=== PATIENT | female | born 1975 | race Caucasian/White ===

== ENCOUNTER 2017-01-20 18:07 | Inpatient (IN) | payer MEDICAID, OTHER ==
[~2017-01-20] VITALS: Ht 154.9 cm; Wt 80.3 kg
--- NOTE | 2017-01-20 18:21 | NUR ---
Patient to bed 07.
--- NOTE | 2017-01-20 18:22 | NUR ---
41/F BIB FAMILY FOR ACUTE ABD PAIN STARTED YESTERDAY FOLLOWED BY N/V/D. STS FEELS DIZZY AND WEAK. FEBRILE IN TRIAGE. HX HTN. RX LISINOPRIL-HCTZ. SKIN IS PINK/WARM/DRY; AAOX4 WITH EVEN AND STEADY GAIT; LUNGS CLEAR BL, PATIENT STATES PAIN OF 5/10 AT THIS TIME; PATIENT POSITIONED FOR COMFORT; HOB ELEVATED; BEDRAILS UP X2; BED DOWN. ER MD MADE AWARE OF PT STATUS.
[2017-01-20 18:28] VITALS: BP 116/74
[2017-01-20] MEDS ORDERED: LISINOPRIL-HCTZ 20-25 MG TAB (18:31)
[2017-01-20] MEDS ORDERED: ONDANSETRON 4 MG/2 ML VIAL IVP ONE ×2 (18:45→20:20)
[2017-01-20] MEDS ORDERED: ACETAMINOPHEN EXTRA STRENGTH 500 MG TAB PO ONE (18:45)
[2017-01-20] MEDS ORDERED: NACL 0.9% 1,000 ML IV ONE ×3 (18:45→21:15)
--- NOTE | 2017-01-20 19:08 | NUR ---
Pt report given to WILMA ROCKWELL . Transfer of care at this time.
[2017-01-20 19:10] LABS: BASOPHILS # (AUTO) 0.1 K/uL (0.00-0.22); BASOPHILS % (AUTO) 2.1 % (0.0-2.0); EOSINOPHILS % (AUTO) 0.1 % (0.0-4.0); HEMATOCRIT 40.4 % (36-48); HEMOGLOBIN 13.9 g/dL (12.0-16.0); LYMPHOCYTES # (AUTO) 0.3 K/uL (2.5-16.5); LYMPHOCYTES % (AUTO) 9.2 % (20.5-51.1); MEAN CORPUSCULAR HEMOGLOBIN 31 pg (27-31); MEAN CORPUSCULAR HGB CONC 35 g/dL (33-37); MEAN CORPUSCULAR VOLUME 91 fL (80-94); MONOCYTES # (AUTO) 0.1 K/uL (0.8-1.0); MONOCYTES % (AUTO) 1.9 % (1.7-9.3); NEUTROPHILS % (AUTO) 86.7 % (42.2-75.2); PLATELET COUNT (AUTO) 216 K/uL (140-450); RED BLOOD CELL COUNT(AUTO) 4.45 MIL/uL (4.20-5.40); RED CELL DISTRIBUTION WIDTH 11.5 % (11.6-13.7); WHITE BLOOD COUNT (AUTO) 3.5 K/uL (4.8-10.8)
[2017-01-20 19:11] LABS: APPEARANCE,URINE CLEAR (CLEAR); BILIRUBIN,URINE NEGATIVE (NEGATIVE); BLOOD, URINE 2+ (NEGATIVE); COLOR,URINE YELLOW (YELLOW); LEUKOCYTE ESTERASE ,URINE NEGATIVE (NEGATIVE); NITRITE, URINE NEGATIVE (NEGATIVE); UGLUCOSE NEGATIVE (NEGATIVE)
--- NOTE | 2017-01-20 19:15 | NUR ---
Pt found resting comfortably, IV fluids infusing, IV site intact, no swelling or redness. AOX4, clear speech. Comfort needs addressed. Warm blanket provided.
[2017-01-20 19:18] LABS: RBC,URINE 0-5 (RARE) /HPF (0-5); WBC,URINE 0-5 (RARE) /HPF (0-5)
[2017-01-20 19:20] LABS: CREATININE 1.1 mg/dL (0.6-1.3)
[2017-01-20 19:25] LABS: ALBUMIN 3.4 g/dL (3.4-5.0); TOTAL BILIRUBIN 0.9 mg/dL (0.0-1.0)
[2017-01-20] MEDS ORDERED: DICYCLOMINE 20 MG/2 ML VIAL IM ONE (19:25)
--- NOTE | 2017-01-20 19:32 | NUR ---
Patient taken to CT scan via wheelchair by tech.
[2017-01-20] MEDS ORDERED: POTASSIUM CHLORIDE 10 MEQ TABER PO ONE ×2 (19:45→22:50)
--- NOTE | 2017-01-20 19:45 | NUR ---
Pt returned from CT and placed in bed 7.
[2017-01-20] MEDS ORDERED: MORPHINE SULFATE 4 MG/ML SYR IVP ONE (20:20)
--- NOTE | 2017-01-20 20:41 | NUR ---
Patient appears to be resting comfortably in bed. VSS. Family at bedside. Comfort needs addressed.
[2017-01-20] MEDS ORDERED: PIPERACILLIN/TAZOBACTAM 3.375 GM in DEXTROSE 5% 50 ML IV ONE (21:15)
--- NOTE | 2017-01-20 21:15 | NUR ---
Dr. Salcedo at bedside re-evaluating patient at bedside. VSS.
--- NOTE | 2017-01-20 21:17 | NUR ---
Ambulated to restroom with steady gait.
--- NOTE | 2017-01-20 21:23 | NUR ---
Lab at bedside for blood draw.
[2017-01-20] MEDS: NACL 0.9% 1,000 ML IV SCH (21:27)
[2017-01-20] MEDS ORDERED: HYDROcodone/APAP 7.5/325 MG 1 TAB PO PRN (21:30)
[2017-01-20] MEDS ORDERED: ONDANSETRON 4 MG/2 ML VIAL IVP PRN (21:30)
[2017-01-20] MEDS ORDERED: PIPERACILLIN/TAZOBACTAM 3.375 GM VIAL IV ONE (21:33)
--- NOTE | 2017-01-20 21:51 | NUR ---
Dr. Pat evaluating patient at bedside.
[2017-01-20 21:55] LABS: PROTHROMBIN TIME 12.9 secs (10.8-13.4)
--- NOTE | 2017-01-20 21:55 | NUR ---
Patient will be admitted to care of Dr. Ricketts. Admited to TELE. Will go to room 121-A. Belongings list completed. Report to Jeromy DILLON.
[2017-01-20 22:00] LABS: CHOL/HDL RATIO 2.6 (1-4.5); FREE T4 (FREE THYROXINE) 1.14 ng/dL (0.76-1.46); THYROID STIMULATING HORMONE 0.47 uIU/mL (0.34-3.74)
[2017-01-20 22:00] LABS: BARBITURATE, URINE NEG. ng/ml (NEG <=200); BENZODIAZEPINE, URINE NEG. ng/mL (NEG <=200); CANNABINOID, URINE NEG. ng/mL (NEG <=50); COCAINE, URINE NEG. ng/mL (NEG <=300); OPIATE, URINE NEG. ng/mL (NEG <=2000); PHENCYCLIDINE SCREEN,URINE NEG. ng/mL (NEG <=25)
[2017-01-20] MEDS ORDERED: MORPHINE SULFATE 2 MG/ML SYR IVP PRN (22:45)
--- NOTE | 2017-01-20 22:50 | NUR ---
PT ARRIVED FROM ER VIA GURNEY. FAMILY AT THE BEDSIDE. PT IS AAOX4 ON ROOM AIR. IV ACCESS INTACT, PATENT AND ASYMPTOMATIC. AMBULATORY, SKIN INTACT. NO SIGNS OF ACUTE DISTRESS. SKIN COLOR APPROPRIATE TO ETHNICITY, SKIN TEMP WARM TO TOUCH. PLAN OF CARE DISCUSSED, PT VERBALIZED UNDERSTANDING. BED IN LOW POSITION, BILATERAL HALF SIDE RAILS UP, CALL LIGHT WITHIN REACH, WILL CONTINUE TO MONITOR.
[2017-01-21] VITALS: BP 94/57
--- NOTE | 2017-01-21 01:17 | NUR ---
PT IS SLEEPING, EASY TO AROUSE. BED IN LOW POSITION, BILATERAL HALF SIDE RAILS UP, CALL LIGHT WITHIN REACH, WILL CONTINUE TO MONITOR.
[2017-01-21 04:00] VITALS: BP 94/59
[2017-01-21] MEDS ORDERED: PIPERACILLIN/TAZOBACTAM 3.375 GM VIAL IV ONE (04:57)
[2017-01-21] MEDS: PIPER/TAZO 3.375GM/D5W PREMIX 50 ML IV SCH ×3 (04:58→18:27)
--- NOTE | 2017-01-21 05:15 | NUR ---
PT IS AWAKE, RESTING IN BED. NO SIGNS OF ACUTE DISTRESS. BED IN LOW POSITION, BILATERAL HALF SIDE RAILS UP, CALL LIGHT WITHIN REACH, WILL CONTINUE TO MONITOR.
[2017-01-21 05:46] LABS: BASOPHILS % (AUTO) 0.4 % (0.0-2.0); EOSINOPHILS # (AUTO) 0.1 K/uL (0-0.4); HEMATOCRIT 34.3 % (36-48); HEMOGLOBIN 11.6 g/dL (12.0-16.0); LYMPHOCYTES # (AUTO) 0.7 K/uL (2.5-16.5); LYMPHOCYTES % (AUTO) 14.6 % (20.5-51.1); MEAN CORPUSCULAR HEMOGLOBIN 31 pg (27-31); MEAN CORPUSCULAR HGB CONC 34 g/dL (33-37); MEAN CORPUSCULAR VOLUME 92 fL (80-94); MONOCYTES # (AUTO) 0.4 K/uL (0.8-1.0); MONOCYTES % (AUTO) 8.5 % (1.7-9.3); NEUTROPHILS # (AUTO) 3.4 K/uL (1.8-7.7); NEUTROPHILS % (AUTO) 74.5 % (42.2-75.2); PLATELET COUNT (AUTO) 182 K/uL (140-450); RED BLOOD CELL COUNT(AUTO) 3.73 MIL/uL (4.20-5.40)
[2017-01-21 06:25] LABS: ANION GAP 9.7 (8-16); CARBON DIOXIDE 25.3 mmol/L (21-32); CREATININE 0.7 mg/dL (0.6-1.3)
[2017-01-21 06:27] LABS: MAGNESIUM 1.6 mg/dL (1.8-2.4); PHOSPHORUS 2.3 mg/dL (2.5-4.9)
[2017-01-21 06:57] LABS: WHITE BLOOD COUNT (AUTO) 4.6 K/uL (4.8-10.8)
--- NOTE | 2017-01-21 07:15 | NUR ---
RECEIVED PT REPORT AT BEDSIDE FROM NIGHT NURSE. PT IS AAOX4 AND SHOWS NO S/S OF ACUTE DISTRESS ON ROOM AIR. SKIN IS INTACT. PT STATES TOLERABLE 6/10 ABD PAIN AND REFUSED PAIN MEDICATION. IV NOTED ON THE L AC WITH IVF'S INFUSING WELL. ON TELE MONITOR. IS AT BEDSIDE TABLE. PT IS AMB. PT WAS EXPLAINED POC FOR TODAY AND VERBALIZED UNDERSTANDING. WILL CONTINUE TO MONITOR.
[2017-01-21 07:32] VITALS: BP 106/71
[2017-01-21] MEDS: LISINOPRIL 20 MG TAB PO SCH (09:00)
[2017-01-21] MEDS: HYDROCHLOROTHIAZIDE 25 MG TAB PO SCH (09:00)
[2017-01-21] MEDS ORDERED: DOCUSATE SODIUM 100 MG GELCAP PO SCH (09:00)
[2017-01-21] MEDS: LACTOBACILLUS RHAMNOSUS GG 1 EACH CAP PO SCH (09:08)
[2017-01-21] MEDS: ACETAMINOPHEN 325 MG TAB PO PRN ×2 (09:14→16:22)
--- NOTE | 2017-01-21 09:15 | NUR ---
ADMINISTERED SCHEDULED MEDICATIONS EXCEPT FOR BP MEDICATIONS DUE TO LOW BLOOD PRESSURE. WILL ASSESS BP THROUGHOUT SHIFT Q4H AND PRN. PT TOLERATED WELL. PT STATED SHE HAD A WATERY BM THIS AM AND WOULD LIKE MEDICATION FOR IT. ALSO PT STATED SHE WOULD LIKE A CREAM FOR HER REDNESS. DR WILSON WAS NOTIFIED. PT'S NEEDS MET AT THIS TIME. SCD'S IN PLACE. WILL CONTINUE TO MONITOR.
--- NOTE | 2017-01-21 09:17 | NUR ---
PATIENT HAS BEEN SCREENED AND CATEGORIZED HIGH NUTRITION RISK. PATIENT WILL BE SEEN WITHIN 1-2 DAYS OF ADMISSION. 01/21/17-01/22/[address]
[2017-01-21 09:50] VITALS: BP 189/134
[2017-01-21] MEDS: NACL 0.9% 1,000 ML IV SCH ×2 (10:05→22:27)
--- NOTE | 2017-01-21 10:50 | NUR ---
PT IS LAYING IN BED AND SHOWS NO S/S OF ACUTE DISTRESS ON ROOM AIR. ALL NEEDS ME AT THIS TIME. BED IN LOW POSITION WITH CALL LIGHT WITHIN REACH.
[2017-01-21 12:00] VITALS: BP 95/66
--- NOTE | 2017-01-21 12:00 | NUR ---
PT BEING SEEN BY DR DUNAWAY
--- NOTE | 2017-01-21 12:10 | NUR ---
DR WILSON WAS NOTIFIED OF PT'S POTASSIUM LEVEL OF 3.0 AND MAGNESIUM LEVEL OF 1.6. DR C[address]ACE ORDERS.
--- NOTE | 2017-01-21 12:44 | NUR ---
01/21/17 RD INITIAL ASSESSMENT COMPLETED PLEASE REFER TO NUTRITION ASSESSMENT UNDER CARE ACTIVITY FOR ESTIMATED NUTRITIONAL NEEDS. 1. CONTINUE CLEAR LIQUID DIET TOLERATED PER MD --ENCOURAGE INCREASED FLUID INTAKE D/T LOSSES FROM DIARRHEA. 2. WHEN MEDICALLY APPROPRIATE CONSIDER SLOWLY ADVANCE DIET TO SOFT AND THEN REGULAR. 3. RD TO FOLLOW-UP 3-5 DAYS, MODERATE RISK CORINA JHONST[address]
--- NOTE | 2017-01-21 13:58 | NUR ---
PT C/O 7/10 ABD PAIN. PT WAS GIVEN PRN PAIN MEDICATION MORPHINE IVP. WILL REASSESS IN 30 MINUTES.
--- NOTE | 2017-01-21 14:30 | NUR ---
PT STATES PAIN, " IT'S AT A 6 OUT OF 10, IT'S MORE TOLERABLE NOW THAN BEFORE." PT HAS SISTER AT BEDSIDE AND SHOWS NO S/S OF ACUTE DISTRESS ON ROOM AIR. ALL NEEDS MET AT THIS TIME. WILL CONTINUE TO MONITOR.
[2017-01-21 16:00] VITALS: BP 111/71
--- NOTE | 2017-01-21 16:00 | NUR ---
PT ORAL TEMPERATURE IS 100.7 FAHRENHEIT. PT WAS GIVEN COOLING MEASURES AND ACETAMINOPHEN 650 MG AND NORCO 7.5/325 MG PO FOR ABD PAIN 08/28. PT STATED, " I FEEL MY PAIN GOING UP AGAIN, CAN I HAVE SOMETHING FOR IT." PT WAS EDUCATED IN HELPING MANAGE PAIN WITH MODERATE PRN PAIN MEDICATION RELIEF.
--- NOTE | 2017-01-21 16:10 | NUR ---
PT'S TEMPERATURE WILL BE REASSESSED AT 1700 AND 1730. PAIN REASSESSMENT WILL BE ALSO REASSESSED AT 1700
[2017-01-21] MEDS ORDERED: MAG SULF 2000 MG/WATER PREMIX 50 ML IV SCH (16:31)
[2017-01-21] MEDS ORDERED: POTASSIUM CHLORIDE 10 MEQ TABER PO SCH (16:31)
[2017-01-21] MEDS ORDERED: POTASSIUM CHLORIDE 40 MEQ, LIDOCAINE 1% 25 MG in NACL 0.9% 250 ML IV SCH ×2 (16:32→20:00)
[2017-01-21] MEDS: SODIUM PHOS / POTASSIUM PHOS 1 PKT PDR PO SCH (16:47)
--- NOTE | 2017-01-21 17:30 | NUR ---
PT TEMPERATURE IS 98.8 FAHRENHEIT. PT SHOWS NO S/S OF ACUTE DISTRESS ON ROOM AIR. WILL CONTINUE TO MONITOR.
--- NOTE | 2017-01-21 18:30 | NUR ---
PT SHOWS NO S/S OF ACUTE DISTRESS ON ROOM AIR. PT STATES TOLERABLE ABD PAIN. ALL NEEDS ARE MET AT THIS TIME. FAMILY AT BEDSIDE. THE BED IN LOW POSITION WITH CALL LIGHT WITHIN REACH. WILL ENDORSE PT IN STABLE CONDITION TO NIGHT NURSE.
--- NOTE | 2017-01-21 19:10 | NUR ---
GAVE PT REPORT AT BEDSIDE TO NIGHT NURSE. PT ENDORSED IN STABLE CONDITION.
--- NOTE | 2017-01-21 19:11 | NUR ---
PATIENT REPORT RECEIVED FROM MORNING NURSE. PATIENT IS AWAKE, ALERT, AND ORIENTED. NO SIGNS AND SYMPTOMS OF DISTRESS NOTED. NO COMPLAINTS OF PAIN AT THIS TIME. PATIENT'S FAMILY IS AT BEDSIDE. IV SITE NOTED ON LEFT AC. IV SITE IS ASYMPTOMATIC, INTACT, AND PATENT. IVF INFUSING WELL. BED IN LOWEST POSITION, SIDE RAILS UP AND CALL LIGHT WITHIN REACH. WILL CONTINUE TO MONITOR.
--- NOTE | 2017-01-21 22:00 | NUR ---
CHECKED ON PATIENT. PATIENT IS ASLEEP. NO SIGNS AND SYMPTOMS OF DISTRESS NOTED. BED IN LOWEST POSITION, SIDE RAILS UP AND CALL LIGHT WITHIN REACH. WILL CONTINUE TO MONITOR.
[2017-01-22] VITALS: BP 108/73
[2017-01-22] MEDS: PIPER/TAZO 3.375GM/D5W PREMIX 50 ML IV SCH ×4 (00:14→17:47)
[2017-01-22 00:57] LABS: ANION GAP 11.8 (8-16); CARBON DIOXIDE 23.9 mmol/L (21-32); CREATININE 0.6 mg/dL (0.6-1.3); POTASSIUM 3.7 mmol/L (3.5-5.1)
[2017-01-22 01:01] LABS: MAGNESIUM 2.3 mg/dL (1.8-2.4); PHOSPHORUS 1.5 mg/dL (2.5-4.9)
[2017-01-22 05:33] LABS: BASOPHILS # (AUTO) 0.2 K/uL (0.00-0.22); BASOPHILS % (AUTO) 3.9 % (0.0-2.0); EOSINOPHILS % (AUTO) 0.6 % (0.0-4.0); HEMATOCRIT 34.1 % (36-48); HEMOGLOBIN 11.3 g/dL (12.0-16.0); LYMPHOCYTES # (AUTO) 0.7 K/uL (2.5-16.5); LYMPHOCYTES % (AUTO) 17.1 % (20.5-51.1); MEAN CORPUSCULAR HEMOGLOBIN 31 pg (27-31); MEAN CORPUSCULAR HGB CONC 33 g/dL (33-37); MEAN CORPUSCULAR VOLUME 93 fL (80-94); MONOCYTES # (AUTO) 0.3 K/uL (0.8-1.0); MONOCYTES % (AUTO) 7.1 % (1.7-9.3); NEUTROPHILS # (AUTO) 2.9 K/uL (1.8-7.7); NEUTROPHILS % (AUTO) 71.3 % (42.2-75.2); PLATELET COUNT (AUTO) 164 K/uL (140-450); RED BLOOD CELL COUNT(AUTO) 3.67 MIL/uL (4.20-5.40); WHITE BLOOD COUNT (AUTO) 4.1 K/uL (4.8-10.8)
[2017-01-22 06:16] LABS: ANION GAP 10.9 (8-16); CARBON DIOXIDE 23.3 mmol/L (21-32); CREATININE 0.6 mg/dL (0.6-1.3); POTASSIUM 3.2 mmol/L (3.5-5.1)
[2017-01-22 06:37] LABS: MAGNESIUM 2.4 mg/dL (1.8-2.4); PHOSPHORUS 1.4 mg/dL (2.5-4.9)
--- NOTE | 2017-01-22 07:20 | NUR ---
PATIENT REPORT GIVEN TO MORNING NURSE. PATIENT IS IN STABLE CONDITION
--- NOTE | 2017-01-22 07:21 | NUR ---
RECEIVED REPORT FROM DAIRY FEED MIXING OPERATOR NURSE AT BEDSIDE FOR CONTINUITY OF CARE. PT IS AWAKE AND ORIENTED. INTRODUCED SELF AND UPDATED BOARD. PT DENIES ABD PAIN. PT REPORTED HAVING A BM THAT WAS DIARRHEA THIS MORNING. NO NAUSEA OR VOMITING NOTED. WILL CONTINUE TO MONITOR.
[2017-01-22 08:00] VITALS: BP 114/72
[2017-01-22] MEDS ORDERED: POTASSIUM CHLORIDE 10 MEQ TABER PO SCH (08:00)
[2017-01-22] MEDS: SODIUM PHOS / POTASSIUM PHOS 1 PKT PDR PO SCH ×3 (08:43→17:01)
[2017-01-22] MEDS: LACTOBACILLUS RHAMNOSUS GG 1 EACH CAP PO SCH (08:44)
[2017-01-22] MEDS: CALCIUM CARBONATE 500 MG TAB PO SCH (08:45)
--- NOTE | 2017-01-22 08:45 | NUR ---
ADMINISTERED SCHEDULED MEDS. HELP BP MEDS DUE TO LOW BP 114/72. PT STATED SHE WAS HAVING LOW BP SINCE ADMISSION AND LAST NIGHT. AGREED TO HOLD BP MEDS AT THIS TIME. PT DENIES ABD PAIN, NAUSEA, AND VOMITING. PT EXPRESSED READINESS TO GO HOME SOON SHE CAN GET D/C'D. NO OTHER COMPLAINTS AT THIS TIME. WILL CONTINUE TO MONITOR.
[2017-01-22] MEDS: LISINOPRIL 20 MG TAB PO SCH (08:48)
[2017-01-22] MEDS: HYDROCHLOROTHIAZIDE 25 MG TAB PO SCH (08:48)
[2017-01-22] MEDS: NACL 0.9% 1,000 ML IV SCH ×3 (08:51→23:18)
[2017-01-22] MEDS ORDERED: SODIUM PHOS / POTASSIUM PHOS 1 PKT PDR PO SCH (09:00)
--- NOTE | 2017-01-22 11:11 | NUR ---
CHECKED ON PT IN ROOM/ PT'S DAUGHTERS ARE AT BEDSIDE. ADMINISTERED SCHEDULED MEDS. PT TOLERATED WELL. PT STATED SHE WAS FEELING A LITTLE NAUSEOUS EARLIER BUT DOES NOT NEED ZOFRAN AT THIS TIME. DENIES ABD PAIN. WILL CONTINUE TO MONITOR.
--- NOTE | 2017-01-22 13:41 | NUR ---
PT WENT TO TAKE SHOWER. ASSISTED BY DIGITAL COORDINATOR. BACK IN ROOM NOW. FAMILY MEMBERS AT BEDSIDE. PT STATED SHE FEELS A LOT BETTER AFTER TAKING A SHOWER. DENIES PAIN, NAUSEA AND VOMITING. NO SIGNS OF DISTRESS. WILL CONTINUE TO MONITOR.
[2017-01-22 15:41] LABS: ANION GAP 11.8 (8-16); CREATININE 0.6 mg/dL (0.6-1.3); POTASSIUM 3.8 mmol/L (3.5-5.1)
[2017-01-22 16:00] VITALS: BP 127/85
--- NOTE | 2017-01-22 16:00 | NUR ---
IV WAS LEAKING ON L AC. D/C'D IV ON L AC 20G. IV CATHETER TIP INTACT. DRESSING AND PRESSURE APPLIED TO SITE. NO BLEEDING NOTED. STARTED NEW IV ON L HAND 22G. NS INFUSING AT 140ML/HR. SITE INTACT. PT GOT UP TO USE BATHROOM. WALKED WITH STEADY GAIT. DENIES ABD PAIN. ASKED PT HOW SHE IS FEELING, PT STATED SHE IS OKAY. FAMILY MEMBERS AT BEDSIDE. BED IN LOW POSITION, WHEELS LOCKED AND CALL LIGHT WITHIN REACH. WILL CONTINUE TO MONITOR.
--- NOTE | 2017-01-22 19:10 | NUR ---
ENDORSED PT TO PRE BILLING SPECIALIST NURSE ANN AT BEDSIDE FOR CONTINUITY OF CARE. FAMILY AT BEDSIDE. PT IN STABLE CONDITION.
--- NOTE | 2017-01-22 19:30 | NUR ---
RECEIVED REPORT FROM AM NURSE. PT IS AAOX4, ON ROOM AIR. FAMILY AT BEDSIDE. IV ACCESS IS INTACT, PATENT AND ASYMPTOMATIC. NO SIGNS OF ACUTE DISTRESS. SKIN COLOR APPROPRIATE TO ETHNICITY, DENIES ANY PAIN AT THIS TIME. PT IS AMBULATORY WITH BP. PLAN OF CARE DISCUSSED, PT VERBALIZED UNDERSTANDING. BED IN LOW POSITION, BILATERAL HALF SIDE RAILS UP, CALL LIGHT WITHIN REACH, WILL CONTINUE TO MONITOR.
[2017-01-22 20:00] VITALS: BP 145/84
[2017-01-23] VITALS: BP 122/76
[2017-01-23] MEDS: PIPER/TAZO 3.375GM/D5W PREMIX 50 ML IV SCH ×2 (00:57→05:29)
--- NOTE | 2017-01-23 04:12 | NUR ---
PT IS SLEEPING, EASY TO AROUSE. NO SIGNS OF ACUTE DISTRESS. BED IN LOW POSITION, BILATERAL HALF SIDE RAILS UP, CALL LIGHT WITHIN REACH, WILL CONTINUE TO MONITOR.
[2017-01-23] MEDS: ACETAMINOPHEN 325 MG TAB PO PRN ×2 (05:29→11:23)
--- NOTE | 2017-01-23 05:34 | NUR ---
PT STATES SHE HAS A HEADACHE. ADMINISTERED ACETAMINOPHEN 650 MG, PT TOLERATED WELL. WILL REASSESS AND CONTINUE TO MONITOR.
[2017-01-23] MEDS: NACL 0.9% 1,000 ML IV SCH (06:30)
[2017-01-23 06:56] LABS: BASOPHILS # (AUTO) 0.2 K/uL (0.00-0.22); BASOPHILS % (AUTO) 3.9 % (0.0-2.0); EOSINOPHILS # (AUTO) 0.1 K/uL (0-0.4); HEMATOCRIT 33.5 % (36-48); HEMOGLOBIN 11.1 g/dL (12.0-16.0); LYMPHOCYTES # (AUTO) 1.3 K/uL (2.5-16.5); LYMPHOCYTES % (AUTO) 30.8 % (20.5-51.1); MEAN CORPUSCULAR HEMOGLOBIN 30 pg (27-31); MEAN CORPUSCULAR HGB CONC 33 g/dL (33-37); MEAN CORPUSCULAR VOLUME 91 fL (80-94); MONOCYTES # (AUTO) 0.4 K/uL (0.8-1.0); MONOCYTES % (AUTO) 8.8 % (1.7-9.3); NEUTROPHILS # (AUTO) 2.1 K/uL (1.8-7.7); NEUTROPHILS % (AUTO) 54.5 % (42.2-75.2); PLATELET COUNT (AUTO) 187 K/uL (140-450); RED BLOOD CELL COUNT(AUTO) 3.66 MIL/uL (4.20-5.40); WHITE BLOOD COUNT (AUTO) 4.1 K/uL (4.8-10.8)
--- NOTE | 2017-01-23 07:25 | NUR ---
ENDORSED PT TO AM NURSE FOR CONTINUITY OF CARE. PT IN STABLE CONDITION
--- NOTE | 2017-01-23 07:30 | NUR ---
RECEIVED REPORT FROM WILMA JUAREZ. PT IS RESTING IN BED, PT IS A/OX4, AMBULATORY, IV IS ON THE LEFT WRIST, PATENT, INTACT, FLUSHING WELL, SKIN IS INTACT, NO S/S OF RESPIRATORY DISTRESS OR DISCOMFORT NOTED, DISCUSSED PLAN OF CARE WITH PT, PT VERBALIZED UNDERSTANDING, SAFETY/FALL PRECAUTIONS ARE IN PLACE, CALL LIGHT WITHIN PATIENT'S REACH, WILL CONTINUE TO MONITOR.
[2017-01-23 07:48] LABS: ANION GAP 12.2 (8-16); CARBON DIOXIDE 24.3 mmol/L (21-32); CREATININE 0.7 mg/dL (0.6-1.3); POTASSIUM 3.5 mmol/L (3.5-5.1)
[2017-01-23 07:58] LABS: MAGNESIUM 1.7 mg/dL (1.8-2.4); PHOSPHORUS 2.6 mg/dL (2.5-4.9)
[2017-01-23 08:00] VITALS: BP 148/89
[2017-01-23] MEDS: HYDROCHLOROTHIAZIDE 25 MG TAB PO SCH (08:09)
[2017-01-23] MEDS: LISINOPRIL 20 MG TAB PO SCH (08:09)
[2017-01-23] MEDS: CALCIUM CARBONATE 500 MG TAB PO SCH (08:09)
[2017-01-23] MEDS: LACTOBACILLUS RHAMNOSUS GG 1 EACH CAP PO SCH (08:09)
--- NOTE | 2017-01-23 09:00 | NUR ---
NOTIFIED DR. CAMACHO THE PATIENT MG WAS 1.7. I ASKED HER IF SHE CAN PUT IN AN ORDER FOR MAGNESIUM, DR. CAMACHO SAID SHE WOULD PUT IT IN.
--- NOTE | 2017-01-23 09:50 | NUR ---
DR. DUNAWAY IS AT PATIENT'S BEDSIDE, SPEAKING WITH PT AT THIS TIME.
[2017-01-23] MEDS ORDERED: MAGNESIUM OXIDE 400 MG TAB PO SCH (11:15)
--- NOTE | 2017-01-23 11:25 | NUR ---
PATIENT COMPLAINED OF A 5/10 HEADACHE, MEDICATE WITH TYLENOL PER PT REQUEST, PROVIDED ICE PACK AND QUIET ENVIRONMENT.
--- NOTE | 2017-01-23 12:25 | NUR ---
PT SLEEPING IN BED AT THIS TIME, CALL LIGHT IS WITHIN REACH.
[2017-01-23] MEDS ORDERED: MAG400 GT (13:19)
--- NOTE | 2017-01-23 14:30 | NUR ---
DISCHARGE INSTRUCTIONS GIVEN, INFORMATION TO DR. [facility] GIVEN, ID WRIST BAND REMOVED, IV REMOVED, CATHETER TIP INTACT. Addendum: 01/23/17 at 1454 by Kathy Alarcon RN PT REFUSED FLU VACCINE. PT WANTS TO GO HOME NOW.
--- NOTE | 2017-01-23 14:40 | NUR ---
PT STABLE UPON DISCHARGE ACCOMPANIED BY FAMILY.
== END 2017-01-23 14:40 | disposition home or self-care (01) | DRG 871 ==
LOC: MED 18:07 → MTU 21:33
PROVIDERS: ADMIT Family Medicine; ATTEND Family Medicine
DX: A41.9 Sepsis, unspecified organism (principal); J69.0 Pneumonitis due to inhalation of food and vomit; N17.0 Acute kidney failure with tubular necrosis; K52.9 Noninfective gastroenteritis and colitis, unspecified; R65.20 Severe sepsis without septic shock; E86.0 Dehydration; E87.6 Hypokalemia; I10 Essential (primary) hypertension; Z90.49 Acquired absence of other specified parts of digestive tract
CPT/HCPCS: 36415; 71010; 80048; 80053; 80305; 81001; 81025; 82150; 82272; 83036; 83605; 83690; 83735; 83880; 84100; 84439; 84443; 84484; 85025; 85610; 85730; 87040; 87045; 87081; 87086; 89055; 93005; 96372; 96374; 96375; 96376; 99285; J0500; J2001; J2270; J2405; J2543; J3475; J3480; J7030; J7060

== ENCOUNTER 2018-02-28 18:48 | Emergency (ER) | payer OTHER ==
[~2018-02-28] VITALS: Ht 157.5 cm; Wt 82.6 kg
[~2018-02-28 18:48] MED LIST: LISINOPRIL-HCTZ 20-25 MG TAB; MAG400 GT
[2018-02-28 18:57] VITALS: BP 151/90
--- NOTE | 2018-02-28 19:22 | NUR ---
PT TO ER CHAIR E
--- NOTE | 2018-02-28 19:30 | NUR ---
PT IS A 42 Y/O FEMALE WHO PRESENTS TO THE ED C/O NECK PAIN X1 DAY. PT REPORTS 8/10 PRESSURE PAIN THAT RADIATES TO THE HEAD. PT DENIES CP, SOB, REPORTS NAUSEA AND DIZZINESS DENIES VOMITING/DIARRHEA. PT TOOK ASPIRIN WITH NO RELIEF. PT AWAKE AND ALERT, RR EVEN/UNLABORED. PT REPOSITIONED FOR COMFORT, BED IN LOWEST POSITION. ER PROVIDER NOTIFIED. WILL CONTINUE TO MONITOR. PMH: HTN RX: NONE
[2018-02-28] MEDS ORDERED: KETOROLAC 60 MG/2 ML VIAL IM ONE (20:25)
--- NOTE | 2018-02-28 20:30 | NUR ---
PATIENT RESTING AT THIS TIME. NO SIGNS OF DISTRESS.
[2018-02-28 21:10] VITALS: BP 148/85
--- NOTE | 2018-02-28 21:10 | NUR ---
Patient discharged with v/s stable. Written and verbal after care instructions given and explained. Patient alert, oriented and verbalized understanding of instructions. Ambulatory with steady gait. All questions addressed prior to discharge. ID band removed. Patient advised to follow up with PMD. Rx of IBUPROFEN 400MG given. Patient educated on indication of medication including possible reaction and side effects. Opportunity to ask questions provided and answered.
== END 2018-02-28 21:10 | disposition home or self-care (01) ==
LOC: MED 18:48
DX: S16.1XXA Strain of muscle, fascia and tendon at neck level, initial encounter (principal); G44.209 Tension-type headache, unspecified, not intractable; I10 Essential (primary) hypertension; Z79.899 Other long term (current) drug therapy; X58.XXXA Exposure to other specified factors, initial encounter; Y93.89 Activity, other specified; Y92.89 Other specified places as the place of occurrence of the external cause; Y99.8 Other external cause status
CPT/HCPCS: 96372; 99283; J1885

== ENCOUNTER 2018-05-08 19:04 | Emergency (ER) | payer OTHER ==
[~2018-05-08] VITALS: Ht 154.9 cm; Wt 83.9 kg
[2018-05-08 19:45] VITALS: BP 162/103
[2018-05-08] MEDS ORDERED: HYDR-3293 PO (19:49)
--- NOTE | 2018-05-08 19:53 | NUR ---
PT RETURNED TO LOBBY IN STABLE CONDITION
[2018-05-08 20:10] LABS: APPEARANCE,URINE CLEAR (CLEAR); BILIRUBIN,URINE NEGATIVE (NEGATIVE); BLOOD, URINE TRACE-I (NEGATIVE); COLOR,URINE YELLOW (YELLOW); LEUKOCYTE ESTERASE ,URINE NEGATIVE (NEGATIVE); NITRITE, URINE NEGATIVE (NEGATIVE); PH,URINE 7.5 (5.0-9.0); UGLUCOSE NEGATIVE (NEGATIVE)
[2018-05-08 20:17] LABS: RBC,URINE 0-5 (RARE) /HPF (0-5); WBC,URINE 0-5 (RARE) /HPF (0-5)
[2018-05-08 20:19] LABS: BASOPHILS % (AUTO) 0.2 % (0.0-2.0); EOSINOPHILS # (AUTO) 0.2 K/uL (0-0.4); EOSINOPHILS % (AUTO) 1.7 % (0.0-4.0); HEMATOCRIT 41.6 % (36-48); HEMOGLOBIN 13.7 g/dL (12.0-16.0); MEAN CORPUSCULAR HEMOGLOBIN 31 pg (27-31); MEAN CORPUSCULAR HGB CONC 33 g/dL (33-37); MEAN CORPUSCULAR VOLUME 92.3 fL (80-94); MONOCYTES # (AUTO) 0.5 K/uL (0.8-1.0); MONOCYTES % (AUTO) 5.9 % (1.7-9.3); NEUTROPHILS # (AUTO) 6.3 K/uL (1.8-7.7); NEUTROPHILS % (AUTO) 70.2 % (42.2-75.2); PLATELET COUNT (AUTO) 312 K/uL (140-450); RED CELL DISTRIBUTION WIDTH 12.9 % (11.6-13.7); WHITE BLOOD COUNT (AUTO) 8.9 K/uL (4.8-10.8)
[2018-05-08 20:27] LABS: ANION GAP 8.8 (8-16); CARBON DIOXIDE 31.8 mmol/L (21-32); POTASSIUM 3.6 mmol/L (3.5-5.1)
[2018-05-08 20:28] LABS: ALBUMIN 3.7 g/dL (3.4-5.0); CREATININE 0.7 mg/dL (0.6-1.3); TOTAL BILIRUBIN 0.3 mg/dL (0.0-1.0)
--- NOTE | 2018-05-08 21:11 | NUR ---
PT AMBULATED TO BED 4
--- NOTE | 2018-05-08 21:11 | NUR ---
Note undone in EDM - 05/08/18 at 2305 by DAVIDA Patient will be admitted to care of []. Admited to [g ED.ADMIT]. Will go to room[]. Belongings list completed. Report to [].PATIENT PRESENTS TO ED WITH C/O HIGH BLOOD PRESSURE AT HOME (177/105). PT C/O FEELING WEAK AND DIZZY. NO C/O OF PAIN AT THIS TIME. PT STARTED NEW BP MED TODAY [place] POTASSIUM. PT TOOK MED AT 3PM AND 7PM. ONLY MEDICAL HISTORY IS HTN. PT DENIES N/V/D; SKIN IS PINK/WARM/DRY; AAOX4 WITH EVEN AND STEADY GAIT; LUNGS CLEAR BL; HR EVEN AND REGULAR; PT DENIES ANY FEVER, CP, SOB, OR COUGH AT THIS TIME; PATIENT STATES PAIN OF 0/10 AT THIS TIME; VSS; PATIENT POSITIONED FOR COMFORT; HOB ELEVATED; BEDRAILS UP X2; BED DOWN. ER MD MADE AWARE OF PT STATUS.
--- NOTE | 2018-05-08 22:12 | NUR ---
Dr. Newby evaluating patient at bedside.
[2018-05-08 23:05] VITALS: BP 151/97
--- NOTE | 2018-05-08 23:05 | NUR ---
Patient discharged with v/s stable. Written and verbal after care instructions given and explained. Patient verbalized understanding. Ambulatory with steady gait. All questions addressed prior to discharge. Advised to follow up with PMD.
== END 2018-05-08 23:05 | disposition home or self-care (01) ==
LOC: MED 19:04
DX: I10 Essential (primary) hypertension (principal); Z79.899 Other long term (current) drug therapy
CPT/HCPCS: 36415; 71046; 80053; 81001; 85025; 99284